=== PATIENT | male | born 1950 | race Caucasian/White ===

== ENCOUNTER → 2016-12-13 | Outpatient (CLI) | payer OTHER ==
[~2016-12-13] MED LIST: ADVAIR 250-501 EACH IH; ADVAIR 250-501 EACH INH; AFLURIA 2045 MCG/0.4; ANALGESIC325 MG PO; ASPIRIN325 OR; ASPIRIN325 PO; AUGMENTIN 875875 M1; AVELOX 400 MG400 MG PO; COMBIVENT IN; FLOMAX PO; IMDUR 30 MG TAB30 M1 PO; LISINOPRIL10 MG PO; LOPRESSOR25 PO; NEXIUM40 MG PO; NORCO 5-325 TA1 EACH PO; PLAVIX 75 MG TA75 MG OR; PLAVIX 75 MG TA75 MG PO; PNEUMOVAX25 MCG/0.5; PROMETHAZINE-C120 ML PO; SIMVASTATIN40 MG PO; TOPROL XL25 MG PO; TYLENOL P.M. E1 EAC3 PO; VENTOLIN17 GM INH; VICODIN PO; ZOCOR40 MG PO; ZOFRAN ODT4 MG PO; tamiflu PO
== END ==
LOC: CAT 11:09
DX: J98.11 Atelectasis (principal); J98.4 Other disorders of lung; R91.1 Solitary pulmonary nodule; R06.02 Shortness of breath; R93.8 Abnormal findings on diagnostic imaging of other specified body structures

== ENCOUNTER → 2017-11-30 | Outpatient (CLI) | payer OTHER | LOC: CAT 10:45 | DX: J44.9 Chronic obstructive pulmonary disease, unspecified (principal) ==

== ENCOUNTER 2021-07-07 10:33 | Inpatient (IN) | payer OTHER ==
[~2021-07-07] VITALS: Ht 175.3 cm; Wt 84.4 kg
[~2021-07-07 10:33] MED LIST changes: +ALBUTEROL2.5 MG/31 INH; +FLOMAX0.4 MG PO; +K-DUR10 MEQ PO; +LASIX 20 MG TAB20 MG PO; +LIPITOR40 MG PO; +NITROSTAT0.4 M1 SUBLING; +PROAIR HFA8.5 GM INH; +PROTONIX40 M2 PO; +SPIRIVA RESPIMAT4 G1 INH; +VITAMIN B-121000 MC2 SUBLING
[2021-07-07 10:44] VITALS: BP 99/60
[2021-07-07] MEDS ORDERED: FAMOTIDINE 20 M20 MG PO (11:11)
[2021-07-07] MEDS ORDERED: CARDURA2 MG PO (11:11)
[2021-07-07] MEDS ORDERED: LISINOPRIL20 MG PO (11:12)
[2021-07-07 11:21] LABS: HEMATOCRIT 40.3 % (42.0-52.0); HEMOGLOBIN 13.3 gm/dL (14.0-18.0); MCH 31.1 pg (26.0-34.0); MCV 94.2 fL (80.0-100.0); PLATELET COUNT 125 thou/uL (150-400); RBC 4.28 mil/uL (4.50-6.00); RDW 14.6 % (10.5-14.5); WBC 2.4 thou/uL (4.0-11.0)
[2021-07-07 11:32] LABS: CALCIUM 9.7 mg/dL (8.5-10.1); POTASSIUM 4.3 mmol/L (3.5-5.1)
[2021-07-07 12:56] LABS: ABSOLUTE NEUTROPHILS 1.5 thou/uL (1.4-8.2); ANISOCYTOSIS SLIGHT; OVALOCYTES OCCASIONAL; POIKILOCYTOSIS SLIGHT
[2021-07-07 12:57] LABS: LARGE PLATELETS OCCASIONAL
[2021-07-07 13:27] LABS: URINE BILIRUBIN NEGATIVE (Negative); URINE BLOOD 1+ (Negative); URINE COLOR YELLOW; URINE GLUCOSE-RANDOM* NEGATIVE (Negative); URINE KETONES TRACE (Negative); URINE PROTEIN (DIPSTICK) 1+ (Negative); URINE SPECIFIC GRAVITY 1.025 (1.005-1.035); URINE UROBILINOGEN 0.2 E.U./dl (0.2-1.0)
[2021-07-07 13:32] LABS: URINE CLARITY HAZY; URINE LEUKOCYTES-REFLEX 3+ (Negative); URINE NITRITE-REFLEX POSITIVE (Negative)
[2021-07-07 13:56] LABS: BACTERIA-REFLEX >30 Many /HPF (None Seen); RENAL EPITHELIAL CELLS 0-3 Few /LPF (None Seen); SQUAMOUS 4-10 Moderate /LPF (0-3); URINE RBC 1-2 Rare /HPF (NONE SEEN); URINE WBC-REFLEX >25 Many /HPF (0-5)
[2021-07-07 14:05] VITALS: BP 105/60
[2021-07-07 14:20] VITALS: BP 120/77
[2021-07-07 14:45] VITALS: BP 125/79
[2021-07-07 18:02] LABS: FOLIC ACID 13.7 ng/mL (8.6-58.9)
[2021-07-07 19:09] VITALS: BP 140/98
[2021-07-08 00:26] VITALS: BP 100/59
[2021-07-08 04:03] VITALS: BP 118/75
--- NOTE | 2021-07-08 05:48 | NUR ---
CONTINUES ON 3 LITERS TONIGHT. HE IS CALM AND COOPERATIVE. NEEDS ENCOURAGING TO USE THE URINAL WHILE NURSE/OR TECH IN THE ROOM.
--- NOTE | 2021-07-08 07:12 | EKG ---
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 : 1950 Requested By: David Garcia Order Number: [id number] MD: Jorge Martins Measurements Intervals [place] Rate: 103 P: 13 RI: 132 QRS: -15 QRSD: 90 T: 32 QT: 310 QTc: 406 Interpretive Statements Sinus tachycardia Atrial premature complexes Borderline left axis deviation Compared to ECG 10/14/2011 15:50:36 Atrial premature complex(es) now present Electronically Signed On 07-08-2021 7:12:25 CDT by Jorge Martins [email or web address] <ELECTRONICALLY SIGNED> By: Jorge Martins MD, [facility] 07/08/21 0712 D: [id number] Jorge Martins MD, FACC /EPI
[2021-07-08 07:50] VITALS: BP 114/71
[2021-07-08 11:37] LABS: CALCIUM 8.8 mg/dL (8.5-10.1); POTASSIUM 4.8 mmol/L (3.5-5.1)
[2021-07-08 11:39] LABS: CREATININE 1.8 mg/dL (0.7-1.3)
[2021-07-08 11:46] LABS: PHOSPHORUS 2.3 mg/dL (2.5-4.9)
[2021-07-08 15:20] VITALS: BP 107/75
--- NOTE | 2021-07-08 17:58 | NUR ---
assumed care of pt at 0700. pt aox4 no acute distress. weaned to room air. labs improving. uneventful on telemetry. probable d/c tomorrow.
[2021-07-08 19:54] VITALS: BP 136/87
[2021-07-09 04:26] VITALS: BP 116/69
--- NOTE | 2021-07-09 04:31 | NUR ---
resting quietly tonight. waits for nurse to assist with the standing at side of the bed. continues on room air. no discharge concerns
[2021-07-09 07:06] LABS: ALBUMIN 2.8 g/dL (3.4-5.0); CALCIUM 8.9 mg/dL (8.5-10.1); CREATININE 1.6 mg/dL (0.7-1.3); PHOSPHORUS 2.9 mg/dL (2.5-4.9); POTASSIUM 4.5 mmol/L (3.5-5.1)
[2021-07-09 07:36] VITALS: BP 130/81
--- NOTE | 2021-07-09 14:34 | NUR ---
INITIAL ASSESSMENT: SW reviewed chart and spoke with nursing and attending physician. Pt was admitted from home due to hypotension. Pt placed in Enhanced Isolation due to COVID. Pt is afebrile and on 2L of O2. Pt is on IV abx. Discharge home is anticipated for tomorrow. SW spoke with pt via phone. Introuduced role of SW. Pt is alert/orientated and states he lives at home with his and dtr. Prior to admission, pt was independent with ADLs. No use of DME. Pt states has has nocturnal home O2 in place. Pt is unsure name of home O2 company. No hx of HH or post-acute placement. Pt's PCP is Dr. Ary Sarah. Pt is agreeable with HH if needed. Rest/exercise oximetry to be ordered to determine home O2 needs. Pt states his family will be able to provide transportation home when discharged. SW is following to assist as needed with discharge planning.
[2021-07-09 15:35] VITALS: BP 142/92
--- NOTE | 2021-07-09 18:28 | NUR ---
assumed care of pt at 0700. comfortable on room air. ivf infusing per oder. anticipate d/c tomorrow. hypotension resolved. pt reports feeling ready to go home. no events on telemetry.
[2021-07-09 19:48] VITALS: BP 127/84
--- NOTE | 2021-07-09 22:43 | NUR ---
PT WATCHING TV IN BED. PT HAS COUGH DRY, REQUESTED TESSALON TRACE[employer] AND PROVIDED. LUNGS CRACKLES IN THE BASES. BED ALARM ON.
[2021-07-10 04:37] VITALS: BP 133/81
[2021-07-10 07:46] VITALS: BP 119/82
[2021-07-10 08:59] LABS: ALBUMIN 2.6 g/dL (3.4-5.0); CALCIUM 8.9 mg/dL (8.5-10.1); CREATININE 1.4 mg/dL (0.7-1.3); PHOSPHORUS 2.8 mg/dL (2.5-4.9); POTASSIUM 4.6 mmol/L (3.5-5.1)
[2021-07-10] MEDS ORDERED: CEFUROXIME500 MG PO (09:53)
[2021-07-10 11:22] VITALS: BP 116/79
--- NOTE | 2021-07-10 11:26 | NUR ---
DISCHARGE NOTE: RUDDY reviewed chart and spoke with nursing and attending physician. Pt remains in Enhanced Isolation due to COVID. Pt is medically stable for discharge home today. Discharge ppwk has been completed. SW spoke with pt via phone to discuss discharge plan. Pt declines needing HH services and states his family will provide transportation home when he is ready. RUDDY updated pt's nurse. RUDDY notified [facility] liaison of pt not needing HH services. SW is available to assist should needs arise.
[2021-07-10 11:41] VITALS: BP 116/79
--- NOTE | 2021-07-10 16:47 | NUR ---
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
== END 2021-07-10 14:25 | disposition home or self-care (01) | DRG 177 ==
LOC: ER 10:33 → EROBS 13:30 → 3W 13:30
PROVIDERS: Student in an Organized Health Care Education/Training Program; ADMIT Hospitalist; ATTEND Hospitalist
DX: U07.1 COVID-19 (principal); N17.0 Acute kidney failure with tubular necrosis; R65.11 Systemic inflammatory response syndrome (SIRS) of non-infectious origin with acute organ dysfunction; N39.0 Urinary tract infection, site not specified; Z79.899 Other long term (current) drug therapy; B96.1 Klebsiella pneumoniae [K. pneumoniae] as the cause of diseases classified elsewhere; E86.0 Dehydration; I95.9 Hypotension, unspecified; I25.10 Atherosclerotic heart disease of native coronary artery without angina pectoris; Z95.5 Presence of coronary angioplasty implant and graft; E78.5 Hyperlipidemia, unspecified; Z86.73 Personal history of transient ischemic attack (TIA), and cerebral infarction without residual deficits; N40.0 Benign prostatic hyperplasia without lower urinary tract symptoms; J44.9 Chronic obstructive pulmonary disease, unspecified; I10 Essential (primary) hypertension; Z88.2 Allergy status to sulfonamides; Z88.7 Allergy status to serum and vaccine; D70.9 Neutropenia, unspecified
CPT/HCPCS: 10879